=== PATIENT | female | born 1995 | race African-American/Black ===

== ENCOUNTER 2021-01-01 20:11 | Emergency (ER) | payer OTHER ==
[~2021-01-01] VITALS: Ht 172.7 cm; Wt 65.8 kg
[2021-01-01] MEDS ORDERED: LORAZEPAM INJ 2 MG/ML VIAL ONE (20:25)
--- NOTE | 2021-01-01 20:25 | NUR ---
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
--- NOTE | 2021-01-01 20:29 | NUR ---
RUBÉN FRIEND. 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
[2021-01-01] MEDS ORDERED: IV NS 0.9% 1,000 ML BAG IV ONE (20:30)
[2021-01-01] MEDS ORDERED: LORAZEPAM INJ 2 MG/ML VIAL IV ONE ×2 (20:30→21:30)
--- NOTE | 2021-01-01 22:01 | NUR ---
IV removed. Catheter intact and site benign. Pressure and 4x4 applied to site. No bleeding noted.Patient discharged to home in stable condition. Written and verbal after care instructions given. Patient verbalizes understanding of instruction.
[2021-01-01 22:02] VITALS: BP 142/80
== END 2021-01-01 22:02 | disposition home or self-care (01) ==
LOC: ER 20:14
DX: F12.929 Cannabis use, unspecified with intoxication, unspecified (principal); R11.2 Nausea with vomiting, unspecified; R00.0 Tachycardia, unspecified
CPT/HCPCS: 93005; 96361; 96374; 99283; J2060; J7030